=== PATIENT | female | born 1990 | race Caucasian/White ===

== ENCOUNTER 2017-08-16 11:32 | Emergency (ER) | payer MEDICAID ==
[~2017-08-16] VITALS: Ht 149.9 cm; Wt 58.5 kg
[2017-08-16 11:54] VITALS: Ht 149.9 cm; Wt 58.5 kg
--- NOTE | 2017-08-16 12:12 | ERA ---
ER Documentation Chief Complaint Date/Time DATE: 08/16/17 TIME: 12:12 Chief Complaint AP HPI The patient is a 26-year-old female, presenting to the ER because of epigastric abdominal pain that began 2 days ago, worse with eating, she has similar symptoms previously. She denies fever, chills, neck pain, chest pain, vomiting , dysuria, diarrhea, constipation. She is does not smoke nor drink Past medical/surgical history: None ROS All systems reviewed and are negative except as per history of present illness. Medications Home Meds Active Scripts Pantoprazole* (Protonix*) 20 Mg Tablet.dr, 20 MG PO DAILY, #14 TAB Prov:OWEN TEAGUE MD 08/16/17 Ibuprofen* (Motrin*) 600 Mg Tab, 600 MG PO Q6, #30 TAB Prov:OWEN TEAGUE MD 08/16/17 Allergies Allergies: Coded Allergies: No Known Allergy (Verified Allergy, Unknown, 12/12/08) Physical Exam Vitals Vital Signs Date Time Temp Pulse Resp B/P Pulse Ox O2 Delivery O2 Flow Rate FiO2 08/16/17 11:54 97.6 60 18 131/73 100 Physical Exam Const: No acute distress. Head: Atraumatic. Eyes: Normal Conjunctiva. ENT: Normal External Ears, Nose and Mouth. Neck: Full range of motion. No meningismus. Resp: Clear to auscultation bilaterally. Cardio: Regular rate and rhythm. Abd: Soft, non distended, normal bowel sounds. Mild epigastric and left upper quadrant tenderness, no right lower quadrant, rigidity, rebound, CVA Skin: No petechiae or rashes. Back: No midline or flank tenderness. Ext: No cyanosis, or edema. Neur: Awake and alert. No focal deficit Psych: Normal Mood and Affect. Result Diagram: 08/16/17 1230 08/16/17 1230 Results 24 hrs Laboratory Tests Test 08/16/17 12:30 08/16/17 12:46 White Blood Count 5.610^3/ul Red Blood Count 4.1410^6/ul Hemoglobin 12.4g/dl Hematocrit 38.1% Mean Corpuscular Volume 92.0fl Mean Corpuscular Hemoglobin 30.0pg Mean Corpuscular Hemoglobin Concent 32.5g/dl Red Cell Distribution Width 12.1% Platelet Count 24712^3/UL Mean Platelet Volume 11.9fl Neutrophils % 43.3% Lymphocytes % 46.3% Monocytes % 6.4% Eosinophils % 2.9% Basophils % 0.9% Nucleated Red Blood Cells % 0.0/100WBC Neutrophils # 2.410^3/ul Lymphocytes # 2.610^3/ul Monocytes # 0.410^3/ul Eosinophils # 0.210^3/ul Basophils # 0.110^3/ul Nucleated Red Blood Cells # 0.010^3/ul Sodium Level 140mmol/L Potassium Level 3.5mmol/L Chloride Level 104mmol/L Carbon Dioxide Level 29mmol/L Anion Gap 11 Blood Urea Nitrogen 9mg/dl Creatinine 0.69mg/dl Glucose Level 91mg/dl Calcium Level 9.6mg/dl Total Bilirubin 0.2mg/dl Direct Bilirubin 0.00mg/dl Indirect Bilirubin 0.2mg/dl Aspartate Amino Transf (AST/SGOT) 18IU/L Alanine Aminotransferase (ALT/SGPT) 29IU/L Alkaline Phosphatase 69IU/L Total Protein 7.9g/dl Albumin 4.2g/dl Globulin 3.70g/dl Albumin/Globulin Ratio 1.13 Lipase 30U/L Bedside Urine pH (LAB) 5.5 Bedside Urine Protein (LAB) Negative Bedside Urine Glucose (UA) Negative Bedside Urine Ketones (LAB) Negative Bedside Urine Blood 3+ Bedside Urine Nitrite (LAB) Negative Bedside Urine Leukocyte Esterase (L Trace Current Medications Medications (Trade) Dose Ordered Sig/Mariama Route PRN Reason Start Time Stop Time Status Last Admin Dose Admin Sodium Chloride (NS) 1,000 ml @ 1,000 mls/hr Q1H STAT IV 08/16/17 12:16 08/16/17 13:15 DC 08/16/17 12:58 Morphine Sulfate (morphine) 4 mg ONCE STAT IV 08/16/17 12:16 08/16/17 12:17 DC 08/16/17 12:57 Ondansetron HCl (Zofran Inj) 4 mg ONCE STAT IV 08/16/17 12:16 08/16/17 12:17 DC 08/16/17 12:57 Procedures/MDM [place] [id number] Radiology Main Line: [phone] DIAGNOSTIC IMAGING REPORT Patient: SABINE MISTRY : 1990 Age: 26 Sex: F MR #: [id number] DOS: 08/16/17 0000 Ordering MD: OWEN TEAGUE MD Location: FT Room/Bed: PROCEDURE: US right upper quadrant abdomen. CLINICAL INDICATION: Abdominal pain TECHNIQUE: Multiple real-time images were acquired of the patient's right upper quadrant abdomen utilizing a high resolution transducer. COMPARISON: None FINDINGS: The liver demonstrates normal echogenicity and normal size without focal lesions. Patent portal vein. Normal gallbladder without gallstones, pericholecystic fluid or gallbladder wall thickening. Negative sonographic Casey's sign. No intrahepatic or extrahepatic biliary dilatation. The common bile duct measures 4 mm in maximal dimension. The visualized portions of the pancreas are normal. The right kidney is normal size with normal echogenicity and morphology. The right kidney measures 10.1 cm. No hydronephrosis or perinephric fluid collections. There are no areas of increased echogenicity to suggest nephrolithiasis. Normal caliber aorta and IVC. No peritoneal free fluid. IMPRESSION: Normal right upper quadrant abdominal ultrasound. RPTAT:AAJJ Physician Heather Date Time Electronically viewed and signed by Physician Heather on 08/16/2017 13 :04 MH/ CC: OWEN TEAGUE MD MEDICAL MAKING DECISION: The patient is a 26-year-old female, presenting with acute abdominal pain of unclear etiology, most likely gastritis. She was treated with 1 L normal saline for clinical dehydration, morphine 4 mg IV for pain, Zofran 4 mg IV for nausea with good response The differential diagnoses considered include but are not limited to cholelithiasis, cholecystitis, cystitis, pancreatitis, hepatitis, gastritis, peptic ulcer disease, gastric ulcer, appendicitis, diverticulitis, cholangitis, choledocholithiasis, partial small bowel obstruction. Departure Diagnosis: Primary Impression: Abdominal pain Condition: Good Additional Instructions: She was discharged with Motrin and Protonix I discussed the findings with the patient. I advised the patient to follow-up with the primary physician in about 1-2 days, sooner if needed and return if any concern. The patient's blood pressure was elevated (>120/80) but appears stable without evidence of hypertension emergency or urgency. The patient was counseled about the risks of hypertension and urged to pursue outpatient monitoring and therapy within a week with their primary care physician. OWEN TEAGUE MD Aug 16, 2017 12:12
[2017-08-16] MEDS ORDERED: SOD CHLORIDE 0.9% 1,000 ML IV STA (12:16)
[2017-08-16] MEDS ORDERED: morphine 4 MG/ML VIAL IV STA (12:16)
[2017-08-16] MEDS ORDERED: ONDANSETRON 4 MG INJ IV STA (12:16)
[2017-08-16 12:39] LABS: URINE BLOOD (Dip) POC 3+ (NEGATIVE)
[2017-08-16 12:43] LABS: BASOPHIL # 0.1 10^3/ul (0.0-0.1); BASOPHILS % 0.9 % (0.0-2.0); EOSINOPHILS # 0.2 10^3/ul (0.0-0.5); EOSINOPHILS % 2.9 % (0.0-7.0); HEMATOCRIT 38.1 % (37.0-47.0); HEMOGLOBIN 12.4 g/dl (12.0-16.0); LYMPHOCYTES # 2.6 10^3/ul (0.8-2.9); LYMPHOCYTES % 46.3 % (15.0-51.0); MEAN CORPUSCULAR HGB CONC 32.5 g/dl (32.0-37.0); MEAN PLATELET VOLUME 11.9 fl (7.4-10.4); MONOCYTE # 0.4 10^3/ul (0.3-0.9); MONOCYTES % 6.4 % (0.0-11.0); NEUTROPHIL # 2.4 10^3/ul (1.6-7.5); NEUTROPHILS % 43.3 % (39.0-77.0); PLATELET COUNT 228 10^3/UL (140-415); RED BLOOD COUNT 4.14 10^6/ul (4.20-5.40); RED CELL DISTRIBUTION WIDTH 12.1 % (11.5-14.5); WHITE BLOOD COUNT 5.6 10^3/ul (4.8-10.8)
[2017-08-16 12:58] LABS: URINE BLOOD (Dip) POC 3+ (NEGATIVE)
--- NOTE | 2017-08-16 13:05 | RADRPT ---
PROCEDURE: US right upper quadrant abdomen. CLINICAL INDICATION: Abdominal pain TECHNIQUE: Multiple real-time images were acquired of the patient's right upper quadrant abdomen utilizing a high resolution transducer. COMPARISON: None FINDINGS: The liver demonstrates normal echogenicity and normal size without focal lesions. Patent portal vein . Normal gallbladder without gallstones, pericholecystic fluid or gallbladder wall thickening. Negat veronica sonographic Casey's sign. No intrahepatic or extrahepatic biliary dilatation. The common bile duct measures 4 mm in maximal dimension. The visualized portions of the pancreas are normal. The r ight kidney is normal size with normal echogenicity and morphology. The right kidney measures 10.1 cm. No hydronephrosis or perinephric fluid collections. There are no areas of increased echogenici ty to suggest nephrolithiasis. Normal caliber aorta and IVC. No peritoneal free fluid. IMPRESSION: Normal right upper quadrant abdominal ultrasound. RPTAT:AAJJ Physician Heather Date Time Electronically viewed and signed by Physician Heather on 08/16/2017 13:04 /
[2017-08-16 13:08] LABS: ALBUMIN 4.2 g/dl (3.3-4.9); ALBUMIN/GLOBULIN RATIO 1.13; BILIRUBIN,INDIRECT 0.2 mg/dl (0-1.1); BILIRUBIN,TOTAL 0.2 mg/dl (0.2-1.3); CALCIUM 9.6 mg/dl (8.4-10.2); CREATININE 0.69 mg/dl (0.44-1.00); POTASSIUM 3.5 mmol/L (3.5-5.1); TOTAL PROTEIN 7.9 g/dl (6.1-8.1)
[2017-08-16] MEDS ORDERED: PANT20TA2 PO (13:18)
[2017-08-16] MEDS ORDERED: IBUP-1542 PO (13:18)
[2017-08-16 13:59] VITALS: BP 110/63; PULSE 60; RESP 16; TEMP 98
== END 2017-08-16 14:01 | disposition home or self-care (01) ==
LOC: FTE 11:32
DX: R10.13 Epigastric pain (principal)
CPT/HCPCS: 36415; 76705; 80053; 81003; 83690; 85025; 96374; 96375; J2270; J2405; J7030; Z7502

== ENCOUNTER 2017-10-27 12:00 | Emergency (ER) | payer MEDICAID ==
[~2017-10-27] VITALS: Ht 160 cm; Wt 60.0 kg
[~2017-10-27 12:00] MED LIST: IBUP-1542 PO; PANT20TA2 PO
[2017-10-27 12:03] VITALS: Ht 160 cm; Wt 60.0 kg
[2017-10-27] MEDS ORDERED: AZITHROMYCIN 250 MG TAB PO STA (12:49)
[2017-10-27] MEDS ORDERED: CEFTRIAXONE 250 MG INJ IVPB STA (12:49)
[2017-10-27] MEDS ORDERED: SOD CHLORIDE 0.9% 1,000 ML IV STA (12:49)
[2017-10-27] MEDS ORDERED: KETOROLAC 30 MG INJ IV STA (12:49)
[2017-10-27] MEDS ORDERED: CEFTRIAXONE 250 MG INJ IM ONE (13:30)
[2017-10-27] MEDS ORDERED: LIDOCAINE 1% (MDV) 20 ML INJ SC ONE (13:30)
[2017-10-27 13:38] LABS: BASOPHILS % 0.6 % (0.0-2.0); EOSINOPHILS # 0.1 10^3/ul (0.0-0.5); EOSINOPHILS % 1.8 % (0.0-7.0); HEMATOCRIT 37.8 % (37.0-47.0); HEMOGLOBIN 12.9 g/dl (12.0-16.0); LYMPHOCYTES # 2.7 10^3/ul (0.8-2.9); LYMPHOCYTES % 40.6 % (15.0-51.0); MEAN CORPUSCULAR HEMOGLOBIN 30.6 pg (29.0-33.0); MEAN CORPUSCULAR HGB CONC 34.1 g/dl (32.0-37.0); MEAN CORPUSCULAR VOLUME 89.6 fl (82.0-101.0); MEAN PLATELET VOLUME 11.7 fl (7.4-10.4); MONOCYTE # 0.6 10^3/ul (0.3-0.9); MONOCYTES % 8.2 % (0.0-11.0); NEUTROPHIL # 3.3 10^3/ul (1.6-7.5); NEUTROPHILS % 48.5 % (39.0-77.0); PLATELET COUNT 245 10^3/UL (140-415); RED BLOOD COUNT 4.22 10^6/ul (4.20-5.40); WHITE BLOOD COUNT 6.7 10^3/ul (4.8-10.8)
[2017-10-27 13:46] LABS: ADD UMIC YES; UR ASCORBIC ACID NEGATIVE (NEGATIVE); UR BILIRUBIN (Dip) NEGATIVE (NEGATIVE); UR BLOOD (Dip) 1+ mg/dL (NEGATIVE); UR CLARITY CLEAR (CLEAR); UR COLOR STRAW (YELLOW); UR GLUCOSE (Dip) NEGATIVE (NEGATIVE); UR KETONES (Dip) NEGATIVE (NEGATIVE); UR LEUKOCYTE ESTERASE (Dip) NEGATIVE Leu/ul (NEGATIVE); UR NITRITE (Dip) NEGATIVE (NEGATIVE); UR RBC 0 /HPF (0-5); UR SPECIFIC GRAVITY (Dip) 1.006 (1.003-1.030); UR SQUAMOUS EPITHELIAL CELL FEW /HPF (FEW); UR TOTAL PROTEIN (Dip) NEGATIVE (NEGATIVE); UR UROBILINOGEN (Dip) NEGATIVE (NEGATIVE)
[2017-10-27 13:55] LABS: CALCIUM 9.4 mg/dl (8.4-10.2); CREATININE 0.61 mg/dl (0.44-1.00)
--- NOTE | 2017-10-27 14:24 | RADRPT ---
PROCEDURE: US Pelvis. CLINICAL INDICATION: Pelvic pain. TECHNIQUE: The pelvis was evaluated with transabdominal sonography in the axial and sagittal plane s. COMPARISON: No prior study is available for comparison. FINDINGS: Uterus: 9.1 x 3.9 x 4.8 cm. Endometrium: 13.1 mm. Right ovary: 2.5 x 1.5 x 1.9 cm. Left ovary: 3.5 x 1.8 x 2.3 cm. Uterine masses: None. Ovarian masses: None. Color Doppler and pulsed Doppler sonography demonstrate normal flow to the ova glenn. Other pelvic masses: None. Free fluid: Trace free fluid is present in the cul-de-sac, likely physiologic. IMPRESSION: 1. Trace free fluid in the cul-de-sac, likely physiologic. 2. Otherwise normal pelvic ultrasound. RPTAT: QQ .Rony Kendall MD, Date Time Electronically viewed and signed by .Rony Kendall MD, on 10/27/2017 14:23 .R/
[2017-10-27] MEDS ORDERED: NAPR-260 PO (15:47)
--- NOTE | 2017-10-27 15:47 | ERD ---
ER Documentation Chief Complaint Chief Complaint Pelvic pain, Vaginal discharge, Vaginal bleeding yesterday HPI The patient is a 26-year-old female, A0, who presents to the emergency department with complaint of pelvic pain and vaginal discharge. The patient reports that her symptoms initially began on Wednesday, with onset of a white/ yellow-colored vaginal discharge and cramping pelvic pain. Yesterday, she noted onset of mild spotting, which has since resolved. She reports that her last menstrual period was 10/13/2017. However, for the last 2 months her menstrual cycles have shifted from their baseline, and are significantly more heavy with increased cramping. She denies any dyspareunia. Denies fevers, sweats, chills, nausea, vomiting, diarrhea, dysuria, hematuria, flank pain. Patient is sexually active, with one long-term male partner, which whom she believes that she is monogamous. She denies use of any barrier protection. Last sexual activity was on Wednesday. Of note, approximately 2 months ago the patient tested positive for Chlamydia, though states that she was treated and the infection is now gone. Her last pap smear was 5-6 months ago, and normal. No other complaints at this time. ROS All systems reviewed and are negative except as per history of present illness. Medications Home Meds Active Scripts Naproxen* (Naprosyn*) 500 Mg Tablet, 500 MG PO BID Y for PAIN AND/OR INFLAMMATION, #30 TAB Prov:ANTHONY JOHNSON PA-C 10/27/17 Pantoprazole* (Protonix*) 20 Mg Tablet.dr, 20 MG PO DAILY, #14 TAB Prov:OWEN TEAGUE MD 08/16/17 Ibuprofen* (Motrin*) 600 Mg Tab, 600 MG PO Q6, #30 TAB Prov:OWEN TEAGUE MD 08/16/17 Allergies Allergies: Coded Allergies: No Known Allergy (Verified , 12/12/08) PMhx/Soc Medical and Surgical Hx: pt denies Medical Hx, pt denies Surgical Hx History of Surgery: No Anesthesia Reaction: No Hx Neurological Disorder: No Hx Respiratory Disorders: No Hx Cardiac Disorders: No Hx Psychiatric Problems: No Hx Miscellaneous Medical Probl: No Hx Alcohol Use: No Hx Substance Use: No Hx Tobacco Use: No Smoking Status: Current every day smoker Physical Exam Vitals Vital Signs Date Time Temp Pulse Resp B/P Pulse Ox O2 Delivery O2 Flow Rate FiO2 10/27/17 12:03 98.1 59 18 128/85 99 Physical Exam GENERAL: Well-developed, well-nourished, in no acute distress HEENT: Head is normocephalic, atraumatic. No scleral pallor or icterus. Pupils equal, round and reactive to light. Extraocular movements intact. Conjunctiva pink. Moist mucous membranes. No pharyngeal erythema or exudates. NECK: Supple. Full range of motion. RESPIRATORY: Lungs are clear to auscultation bilaterally. Equal breath sounds. Normal expiratory effort. CARDIOVASCULAR: Regular rate and rhythm. S1 and S2 normal. GASTROINTESTINAL: Abdomen is soft, nontender, and nondistended. No guarding, no rebound tenderness. Normal bowel sounds. FLANK: No CVA tenderness, no mass or swelling. BACK: No midline tenderness. 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 Normal external genitalia. No abnormal lesions, vesicles, ulcerations noted. White discharge noted. No associated odor. No bleeding. No cervical motion tenderness. No adnexal tenderness. No uterine tenderness. No masses. EXTREMITIES: No clubbing, cyanosis, or edema. Normal skin perfusion. Moving all extremities. Muscle tone is normal. No focal swelling or erythema. Distal pulses are palpable, 2+ bilaterally. Capillary refill is less than 2 seconds. NEUROLOGIC: The patient is alert, awake, and oriented x 3. No focal neurologic deficits. INTEGUMENT: Skin is clean, dry and intact. No rashes, lesions or petechiae present. PSYCHIATRIC: Appropriate; Cooperative. Result Diagram: 10/27/17 1323 10/27/17 1323 Results 24 hrs Laboratory Tests Test 10/27/17 13:23 10/27/17 13:30 White Blood Count 6.710^3/ul Red Blood Count 4.2210^6/ul Hemoglobin 12.9g/dl Hematocrit 37.8% Mean Corpuscular Volume 89.6fl Mean Corpuscular Hemoglobin 30.6pg Mean Corpuscular Hemoglobin Concent 34.1g/dl Red Cell Distribution Width 12.0% Platelet Count 77210^3/UL Mean Platelet Volume 11.7fl Neutrophils % 48.5% Lymphocytes % 40.6% Monocytes % 8.2% Eosinophils % 1.8% Basophils % 0.6% Nucleated Red Blood Cells % 0.0/100WBC Neutrophils # 3.310^3/ul Lymphocytes # 2.710^3/ul Monocytes # 0.610^3/ul Eosinophils # 0.110^3/ul Basophils # 0.010^3/ul Nucleated Red Blood Cells # 0.010^3/ul Sodium Level 141mmol/L Potassium Level 4.0mmol/L Chloride Level 102mmol/L Carbon Dioxide Level 28mmol/L Anion Gap 15 Blood Urea Nitrogen 10mg/dl Creatinine 0.61mg/dl Glucose Level 88mg/dl Calcium Level 9.4mg/dl Serum HCG, Qualitative NEGATIVE Rapid Plasma Reagin NONREACTIVE Urine Color STRAW Urine Clarity CLEAR Urine pH 7.0 Urine Specific [place] 1.006 Urine Ketones NEGATIVEmg/dL Urine Nitrite NEGATIVEmg/dL Urine Bilirubin NEGATIVEmg/dL Urine Urobilinogen NEGATIVEmg/dL Urine Leukocyte Esterase NEGATIVELeu/ul Urine Microscopic RBC 0/HPF Urine Microscopic WBC 1/HPF Urine Squamous Epithelial Cells FEW/HPF Urine Hemoglobin 1+mg/dL Urine Glucose NEGATIVEmg/dL Urine Total Protein NEGATIVEmg/dl Current Medications Medications (Trade) Dose Ordered Sig/Mariama Route PRN Reason Start Time Stop Time Status Last Admin Dose Admin Sodium Chloride (NS) 1,000 ml @ 1,000 mls/hr Q1H STAT IV 10/27/17 12:49 10/27/17 13:48 DC 10/27/17 13:27 Azithromycin (Zithromax) 1,000 mg ONCE STAT PO 10/27/17 12:49 10/27/17 12:52 DC 10/27/17 13:26 Ceftriaxone Sodium (Rocephin) 250 mg ONCE STAT IVPB 10/27/17 12:49 10/27/17 13:22 DC Ketorolac Tromethamine (Toradol) 30 mg ONCE STAT IV 10/27/17 12:49 10/27/17 12:52 DC 10/27/17 13:25 Lidocaine (Xylocaine 1% (Mdv) 20 ml) 20 ml ONCE ONCE SC 10/27/17 13:30 10/27/17 13:31 DC 10/27/17 13:27 Ceftriaxone Sodium (Rocephin) 250 mg ONCE ONCE IM 10/27/17 13:30 10/27/17 13:31 DC 10/27/17 13:26 Procedures/MDM DIAGNOSTIC TESTS AND INTERPRETATION: PROCEDURE: US Pelvis. CLINICAL INDICATION: Pelvic pain. TECHNIQUE: The pelvis was evaluated with transabdominal sonography in the axial and sagittal planes. COMPARISON: No prior study is available for comparison. FINDINGS: Uterus: 9.1 x 3.9 x 4.8 cm. Endometrium: 13.1 mm. Right ovary: 2.5 x 1.5 x 1.9 cm. Left ovary: 3.5 x 1.8 x 2.3 cm. Uterine masses: None. Ovarian masses: None. Color Doppler and pulsed Doppler sonography demonstrate normal flow to the ovaries. Other pelvic masses: None. Free fluid: Trace free fluid is present in the cul-de-sac, likely physiologic. IMPRESSION: 1. Trace free fluid in the cul-de-sac, likely physiologic. 2. Otherwise normal pelvic ultrasound. .Rony Kendall MD, MD Date Time Electronically viewed and signed by .Rony Kendall MD, on 10/27/2017 14:23 Microbiology WET MOUNT Final WHITE BLOOD CELLS RARE BACTERIA 1+ EPITHELIAL CELLS 2+ YEAST NONE SEEN CLUE CELLS NO CLUE CELLS SEEN MOTILE TRICHOMONAS NO MOTILE TRICHOMONAS SEEN EMERGENCY DEPARTMENT COURSE: The patient was stable throughout the ED course. Laboratory testing, US imaging, wet mount performed. Urine culture and GC/ chlamydia testing sent. Patient treated prophylactically with 1,000 mg PO Azithromycin and 250 mg IM Rocephin for possible cervicitis, STI, given history. MEDICAL DECISION MAKING: This is a 26-year-old female presenting to the emergency department with pelvic pain and vaginal discharge since Wednesday. On physical examination, patient noted to have white-colored discharge. She had no tenderness to palpation of the abdomen, no cervical motion tenderness or adnexal tenderness, on physical examination. Vital signs are stable. She has been sexually active, with her boyfriend, with no use of barrier protection. Differential diagnosis includes, but is not limited to, urinary tract infection , PID, TOA, cervicitis, dermatitis, chlamydia, gonorrhea, bacterial vaginosis, candidiasis, herpes, lichen sclerosus, trichomoniasis. Wet mount performed, with no evidence of hyphae, clue cells, trichomonads. RPR nonreactive. Urinalysis with no nitrites, no urine leukocyte esterase, doubt urinary tract infection. Urine culture is sent. test negative. Gonorrhea/chlamydial cultures sent. Ultrasound imaging with no acute abnormalities noted. After rest , the patient reports no new complaints. Upon my review and interpretation of the patient's presentation and overall ER course, I believe that the patient's symptoms are most consistent with pelvic pain and vaginal discharge. The patient was treated in the ER with 250 mg IM Rocephin and 1 gram of Azithromycin, for STD coverage. GC/Chlamydia screen was sent out for evaluation. The patient is in stable condition and therefore can be discharged home with strict return precautions for signs of deteriorating or worsening condition. The patient is instructed to follow up with her primary care provider and/or [facility] within 1-2 days for reevaluation and further management or return to the ER sooner for any worsening symptoms. I shared my medical decision making and plan with the patient and she verbally understands and agrees with the plan for further observation and care as an outpatient. At the time of discharge, all questions were answered. Departure Diagnosis: Primary Impression: Acute pain in female pelvis Additional Impression: Vaginal discharge Condition: Stable Patient Instructions: Pelvic Pain, Unknown Cause Additional Instructions: Llame al doctor MAANA y meredith emanuel MARLON PARA DENTRO DE 1-2 MOREL.Dgale a la secretaria que nosotros le instruimos hacer esta marlon.Avise o llame si king condicin se empeora antes de la marlon. Regresa aqui si peor o no mejor. ANTHONY JOHNSON PA-C Oct 27, 2017 15:47 ANTHONY JOHNSON PA-C Oct 27, 2017 15:47
== END 2017-10-27 16:01 | disposition home or self-care (01) ==
LOC: FTE 12:00
DX: R10.2 Pelvic and perineal pain (principal); N89.8 Other specified noninflammatory disorders of vagina; F17.210 Nicotine dependence, cigarettes, uncomplicated
CPT/HCPCS: 36415; 76856; 80048; 81001; 84703; 85025; 86592; 87081; 87086; 87210; 87591; 96372; 96374; J0696; J1885; J7030; Z7502; Z7610

== ENCOUNTER 2017-12-16 11:50 | Emergency (ER) | END 2017-12-16 16:20 | disposition left against medical advice (07) ==

== ENCOUNTER 2018-05-27 17:28 | Emergency (ER) | END 2018-05-27 22:41 | disposition home or self-care (01) ==

== ENCOUNTER 2018-10-10 09:35 | Outpatient (CLI) | payer MEDICAID ==
[~2018-10-10] VITALS: Ht 157.5 cm; Wt 66.2 kg
[~2018-10-10 09:35] MED LIST changes: +ACET325T33 PO; +CEPH-443 PO; +NAPR-985 PO
[2018-10-10 10:11] VITALS: BP 117/67; PULSE 96; RESP 17; Ht 157.5 cm; Wt 66.2 kg
[2018-10-10] MEDS ORDERED: LACTATED RINGER'S 1,000 ML IV SCH (12:01)
--- NOTE | 2018-11-15 18:30 | PN ---
Triage Information Date/Time Reason for visit: Uterine contractions Weeks of Gestation 28+ /Para n/a Diabetes: none Hypertention: none Objective Heart Rate: 140's Contractions: None Disposition: Discharge Assessment/Plan BPP 08/17 CXL 3.6 cm FFN neg --->Discharge with precautions -->Follow up with provider GRZEGORZ MITCHELL M.D. Nov 15, 2018 18:30
== END 2018-10-10 13:10 | disposition home or self-care (01) ==
LOC: L-D 09:35 → OBT 09:35
PROVIDERS: ATTEND Obstetrics & Gynecology
DX: O62.9 Abnormality of forces of labor, unspecified (principal); Z3A.28 28 weeks gestation of pregnancy
CPT/HCPCS: 76817; 76818; 81001; 82731; 85025; 86850; 86900; 86901; 96360; 96361; J7120; Z7500; G0463

== ENCOUNTER 2018-12-22 08:36 | Outpatient (CLI) | payer MEDICAID ==
[~2018-12-22] VITALS: Ht 152.4 cm; Wt 72.3 kg
[2018-12-22 08:59] VITALS: Ht 152.4 cm; Wt 72.3 kg
[2018-12-22] MEDS ORDERED: PREN-93 PO (08:59)
[2018-12-22 09:00] VITALS: BP 108/58; PULSE 69; RESP 18
--- NOTE | 2018-12-22 17:22 | PN ---
Triage Information Date/Time December 22, 2018 Reason for visit: Patient presented with complaint of tenderness at the top of the fundus of the uterus when the baby moves and with touch. Reports a history of questionable fibroid in that area previously. Weeks of Gestation 37 weeks and 6 days /Para 2 para 1 Diabetes: none Hypertention: none Additional information 28-year-old with IUP at 7 weeks and 6 days presented with complaint of tenderness in the top of the fundus of the uterus when the baby moves and with touch. She also reports some cramps. Denies any leaking of fluid, vaginal bleeding decreased movement or any other complaint. Reports had a history of lump in the uterus in the past. Objective Vital Signs Date Temp Pulse Resp B/P (MAP) Pulse Ox O2 O2 Flow FiO2 Time Delivery Rate 12/22/18 98.2 69 18 108/58 Room Air 09:00 (75) Heart Rate: 130's Heart Rate Comments Reassuring and category 1 Contractions: None Exam General appearance: Alert and oriented x4 does not appear to be in any acute distress Abdomen: Soft, gravid, fundal height consider gestational age, tenderness at the fundus of the uterus at the left upper side at the area of a small tender lump 2 x 2 centimeter consistent with likely sub-serosal fibroid noted NST: Category 1 and appropriate for gestational age Contractions irregular on the monitor Sterile vaginal examination: /-2. Repeat exam did not show any change' Results/Medications Imaging Results PROCEDURE: US OB biophysical profile. CLINICAL INDICATION: decreased movements, contractions TECHNIQUE: Multiple sonographic images of the pelvis were obtained. The images were reviewed on a PACS workstation. COMPARISON: No prior studies are available for comparison. FINDINGS: There is a single live intrauterine gestation. Cardiac activity is present with 152 beats per minute. There is a vertex presentation. The placenta is anterior. There is no evidence of placental abruption. There is a normal amount of amniotic fluid with an LISSA = 12.7 cm. Biophysical profile: movement 2/2 tone 2/2. breathing 2/2 LISSA 2/2 Total 06/15 RPTAT: AA . IMPRESSION: Normal biophysical profile. . Disposition: Discharge Assessment/Plan IUP at 37 weeks and 6 days No evidence of labor testing reassuring Tenderness at the area of the fundus of the uterus, likely fibroid, degenerated Patient was reassured Labor precautions kick count and follow-up within 48 hours after discharge from the hospital with primary OB office discussed with patient Patient verbalized understanding. All questions were answered to patient's best satisfaction. Please take Tylenol as needed pain in that area Discussed with patient degeneration of the fibroids, during and resolves BENIGNO RAMIREZ MD Dec 22, 2018 17:21
== END 2018-12-22 12:45 | disposition home or self-care (01) ==
LOC: OBT 08:36 → L-D 08:36 → OBT 12:45
PROVIDERS: ATTEND Obstetrics & Gynecology
DX: O62.9 Abnormality of forces of labor, unspecified (principal); Z3A.37 37 weeks gestation of pregnancy
CPT/HCPCS: 76818; Z7500; G0463

== ENCOUNTER 2018-12-25 08:44 | Inpatient (IN) | payer MEDICAID ==
[~2018-12-25] VITALS: Ht 152.4 cm; Wt 73.3 kg
[~2018-12-25 08:44] MED LIST changes: -ACET325T33 PO; -CEPH-443 PO; -IBUP-1542 PO; -NAPR-985 PO; -PANT20TA2 PO; +PREN-93 PO
[2018-12-25] MEDS ORDERED: ACETAMINOPHEN 325 MG TAB PO PRN (09:30)
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
--- NOTE | 2018-12-25 11:40 | HP ---
Date/Time of Note Date/Time of Note DATE: 12/25/18 TIME: 11:39 OB - History Hx of Present Free Text/Dictation 38+wks with Vaginal bleeding : 2 Para: 1 Care: Good Care Ultrasounds: Normal mid trimester US Obstetrical Complications: None Medical Complications: None Past Family/Social History * Past Medical, Surgical, Family and Obstetric Histories reviewed from chart. OB Admission Exam Physical Exam Abdomen: WNL Extremities: Normal Cervical Dilatation: 1cm Effacement: 75% Station: -1 Membranes: Intact Heart Rate: 140's Accelerations: Accelerations Present Decelerations: No Decelerations Varibility: Moderate Contractions on Admission: 6-10 Minutes Apart OB Assessment/Plan Reason for admission: observation Plan: Expectant Management GRZEGORZ MITCHELL M.D. Dec 25, 2018 11:40
[2018-12-25] MEDS: LACTATED RINGER'S 1,000 ML IV SCH ×2 (12:14→19:36)
--- NOTE | 2018-12-25 21:57 | PD.PPDC ---
RESEARCH SUBJECT Discharge Instruction Condition [id number] Patient Condition: [id number] Good Diet Tsmre1Ii Diet: Detad9c Resume Regular Diet Activity/Restrictions [id number] Activity: Syark1t Normal Activity May Shower [id number] Restrictions: [id number] No Sexual Activity Nothing in the Vagina No [place] No Tampons, douche Follow-up Follow-up with Physician: 2, Day/Days Return to clinic for [id number] HUNTER Instructions: [id number] Worsening abdominal pain Excessive Vaginal Bleeding KALPANA SAAB MD Dec 25, 2018 21:57
--- NOTE | 2018-12-25 22:00 | DS ---
Date/Time of Note Date/Time of Note DATE: 12/25/18 TIME: 21:58 Obstetrical Discharge Record Final Diagnosis Final Diagnosis: Term not delivered Other Final Diagnosis False labor Complications Augmentation: No Induction: No Third Trimester Bleeding: Other (Pt had some light bleeding after a cervical exam 3 days agovand the bleeding has shown old blood and has diminished since then) Rupture of Membranes: No Condition on Discharge Physical Assessment Last Vitals: Normotensive, afebrile Voiding: Yes Bowel Movement: Yes Breast: Soft, non-tender Fundus: Other (gravid) Calf Tenderness: No Patient Condition: KALPANA Su MD Dec 25, 2018 22:00
[2018-12-26] MEDS ORDERED: PRENATAL VITAMIN PO SCH (09:00)
== END 2018-12-25 22:20 | disposition home or self-care (01) | DRG 833 ==
LOC: OBT 08:44 → L-D 08:45 → OBT 09:35 → L-D 11:58
PROVIDERS: ADMIT Obstetrics & Gynecology; ATTEND Obstetrics & Gynecology
DX: O47.1 False labor at or after 37 completed weeks of gestation (principal); O46.93 Antepartum hemorrhage, unspecified, third trimester; Z3A.38 38 weeks gestation of pregnancy
CPT/HCPCS: 76818; G0463; J7120

== ENCOUNTER 2018-12-29 13:00 | Inpatient (IN) | payer MEDICAID ==
[~2018-12-29] VITALS: Ht 152.4 cm; Wt 73.6 kg
[~2018-12-29 13:00] MED LIST changes: +ACET325T33 PO; +CEPH-443 PO; +IBUP-1542 PO; +NAPR-985 PO; +PANT20TA2 PO
[2018-12-29] MEDS ORDERED: FOLI0.4T2 PO (13:57)
[2018-12-29] MEDS ORDERED: CALC667C PO (13:57)
[2018-12-29 13:58] VITALS: BP 125/69; PULSE 74; RESP 20; Ht 152.4 cm; Wt 73.6 kg
[2018-12-29] MEDS ORDERED: MISOPROSTOL 200 MCG TAB PR PRN (14:30)
[2018-12-29] MEDS ORDERED: OXYTOCIN 30 UNITS/LR 500 ML IV PRN (14:30)
[2018-12-29] MEDS ORDERED: LIDOCAINE 1% (MPF) 30 ML INJ INJ PRN (14:30)
[2018-12-29] MEDS ORDERED: CARBOPROST 250 MCG INJ IM PRN (14:30)
[2018-12-29] MEDS ORDERED: IBUPROFEN 600 MG TAB PO PRN (14:30)
[2018-12-29] MEDS ORDERED: BUTORPHANOL 2 MG INJ IV PRN (14:30)
[2018-12-29] MEDS ORDERED: METHYLERGONOVINE 0.2 MG INJ IM PRN (14:30)
[2018-12-29] MEDS ORDERED: OXYTOCIN 30 UNITS/LR 500 ML IV SCH ×2 (14:30)
[2018-12-29] MEDS ORDERED: AMPICILLIN 2 GM/NS (PMX) 100 ML IV ONE (14:30)
[2018-12-29] MEDS ORDERED: BUTORPHANOL 1 MG INJ IV PRN (14:30)
[2018-12-29] MEDS: LACTATED RINGER'S 1,000 ML IV SCH ×2 (14:57→23:48)
--- NOTE | 2018-12-29 15:29 | TRIAGE ---
OB Triage Datetime Report Generated by CPN: 12/29/2018 15:28 Datetime: 12/29/2018 14:40 Labor Evaluation Frequency: 1-5 Monitor Mode: External Duration (sec)2399: 30-100 Quality: Mild Pattern: Normal: <= 5 Contractions in 10 Minutes Resting Tone [place]: Relaxed Heart Rate FHR Baseline Rate: 140 Monitor Mode: External US Variability: Moderate 6-25 bpm Accelerations: 15X15 Decelerations: None Category: Category I Datetime: 12/29/2018 14:26 Vaginal Exam Dilatation (cms): 3.5 Effacement (%): 60 Membrane Status: Ruptured Datetime: 12/29/2018 13:56 Assessment Type: Triage Maternal Assessment Level of Consciousness: Fully Conscious DTR's/Clonus: DTRs 2+; No Clonus Headache: Denies Blurred Vision: No Respiratory Effort: Unlabored; Regular Rhythm; Equal Expansion Nausea/Vomiting: Denies RUQ Epigastric Pain: Denies Lower Extremities Edema: None Degree: None Upper Extremities Edema: None Degree: None Facial Edema: None Fall Risk Assessment History of Falling: (0) No Secondary Diagnosis: (0) No Ambulatory Aid: (0) Bedrest/Nurse Assist IV Therapy: (0) No Gait: (0) Normal/Bedrest/Immobile Mental Status: (0) Oriented to Own Ability Fall Score: 0 Fall Risk Score Definition: No Risk: No action required Datetime: 12/29/2018 13:55 Time of Arrival: 12/29/2018 12:43 EGA: 38.6 Arrived By: Ambulatory Arrived From: Home Chief Complaint: ucs and srom Movement: Present Contractions: Regular Time Contractions Began: 12/29/2018 04:00 Contractions: 5 min Rupture of Membranes: Ruptured Vaginal Bleeding: None Vaginal Discharge: Denies Recent Sexual Intercouse: Denies Abdominal Trauma: Not Applicable Patient Complaints: Contractions Time Provider Notified: 12/29/2018 14:39 Provider Notified: ARDALAN Initial Plan: nst, sve Datetime: 12/25/2018 22:20 Stage of : Antepartum Maternal Assessment Level of Consciousness: Fully Conscious DTR's/Clonus: DTRs 2+; No Clonus Headache: Denies Breath Sounds, Left: Clear and Equal Breath Sounds, Right: Clear and Equal Nausea/Vomiting: Denies RUQ Epigastric Pain: Denies Temperature Route: Axillary Pain Assessment Pain Scale: 2 Pain Presence: None/Denies Pain Type: N/A Datetime: 12/25/2018 21:49 Maternal Assessment Level of Consciousness: Fully Conscious Respiratory Effort: Unlabored Breath Sounds, Left: Clear and Equal Breath Sounds, Right: Clear and Equal Labor Evaluation Frequency: 10-13 Monitor Mode: External Duration (sec)2399: 30-40 Quality: Mild Pattern: Normal: <= 5 Contractions in 10 Minutes Resting Tone [place]: Relaxed Contraction Comments: NO PRESSURE OR PAIN FELT PER PT Heart Rate FHR Baseline Rate: 150 Monitor Mode: External US FHR Baseline Changes: No Baseline Change Variability: Moderate 6-25 bpm Accelerations: 15X15 Decelerations: None Category: Category I Pain Assessment Pain Scale: 0 Pain Presence: None/Denies Pain Type: N/A Membrane Status: Intact Datetime: 12/25/2018 19:19 Stage of : Antepartum Maternal Assessment Level of Consciousness: Fully Conscious Maternal Assessment Level of Consciousness: Fully Conscious DTR's/Clonus: DTRs 2+; No Clonus DTR's/Clonus: DTRs 2+ Headache: Denies Headache: Denies Blurred Vision: No Respiratory Effort: Unlabored Breath Sounds, Left: Clear and Equal Breath Sounds, Left: Clear and Equal Breath Sounds, Right: Clear and Equal Breath Sounds, Right: Clear and Equal Nausea/Vomiting: Denies Nausea/Vomiting: Denies RUQ Epigastric Pain: Denies RUQ Epigastric Pain: Denies Facial Edema: None Temperature Route: Axillary Labor Evaluation Frequency: 10 Monitor Mode: External Duration (sec)2399: 20-30 Quality: Mild Pattern: Normal: <= 5 Contractions in 10 Minutes Resting Tone [place]: Relaxed Heart Rate FHR Baseline Rate: 150 Monitor Mode: External US FHR Baseline Changes: No Baseline Change Variability: Moderate 6-25 bpm Accelerations: 15X15 Decelerations: None Category: Category I Pain Assessment Pain Scale: 0 Pain Presence: None/Denies Pain Type: N/A Pain Goal: 2 Pain Assessment Comments: AT BEDSIDE Membrane Status: Intact Datetime: 12/25/2018 19:00 Labor Evaluation Frequency: OCC Monitor Mode: External Quality: Mild Pattern: Normal: <= 5 Contractions in 10 Minutes Resting Tone [place]: Relaxed Heart Rate FHR Baseline Rate: 150 Monitor Mode: External US FHR Baseline Changes: No Baseline Change Variability: Moderate 6-25 bpm Accelerations: 15X15 Decelerations: None Category: Category I Pain Presence: None/Denies Datetime: 12/25/2018 18:00 Labor Evaluation Frequency: x3 UC noted this hour Monitor Mode: External Quality: Mild Pattern: Normal: <= 5 Contractions in 10 Minutes Resting Tone [place]: Relaxed Heart Rate FHR Baseline Rate: 140 Monitor Mode: External US FHR Baseline Changes: No Baseline Change Variability: Moderate 6-25 bpm Accelerations: 15X15 Decelerations: None Category: Category I Pain Presence: None/Denies Datetime: 12/25/2018 17:00 Labor Evaluation Frequency: OCC Monitor Mode: External Quality: Mild Pattern: Normal: <= 5 Contractions in 10 Minutes Resting Tone [place]: Relaxed Heart Rate FHR Baseline Rate: 140 Monitor Mode: External US FHR Baseline Changes: No Baseline Change Variability: Moderate 6-25 bpm Accelerations: 15X15 Decelerations: None Category: Category I Pain Presence: None/Denies Datetime: 12/25/2018 16:18 Temperature Route: Oral Datetime: 12/25/2018 16:00 Labor Evaluation Frequency: x3 UC noted this hour Monitor Mode: External Quality: Mild Pattern: Normal: <= 5 Contractions in 10 Minutes Resting Tone [place]: Relaxed Heart Rate FHR Baseline Rate: 145 Monitor Mode: External US FHR Baseline Changes: No Baseline Change Variability: Moderate 6-25 bpm Accelerations: 15X15 Decelerations: None Category: Category I Pain Presence: None/Denies Pain Assessment Comments: Pt denies feeling any pain or pressure with UC Datetime: 12/25/2018 15:00 Labor Evaluation Frequency: 5-10 Monitor Mode: External Duration (sec)2399: 60-90 Quality: Moderate Pattern: Normal: <= 5 Contractions in 10 Minutes Resting Tone [place]: Relaxed Heart Rate FHR Baseline Rate: 155 Monitor Mode: External US FHR Baseline Changes: No Baseline Change Variability: Moderate 6-25 bpm Accelerations: 15X15 Decelerations: None Category: Category I Pain Assessment Pain Scale: 3 Pain Presence: Intermittent Pain Type: Contraction Pain Location: Abdomen; Back Pain Goal: 2 Pain Relief Measures: Comfort Measures Datetime: 12/25/2018 14:00 Labor Evaluation Frequency: 5-8 Monitor Mode: External Duration (sec)2399: 50-90 Quality: Moderate Pattern: Normal: <= 5 Contractions in 10 Minutes Resting Tone [place]: Relaxed Heart Rate FHR Baseline Rate: 155 Monitor Mode: External US FHR Baseline Changes: No Baseline Change Variability: Moderate 6-25 bpm Accelerations: 15X15 Decelerations: None Category: Category I Pain Assessment Pain Scale: 3 Pain Presence: Intermittent Pain Type: Contraction Pain Location: Abdomen; Back Pain Goal: 2 Pain Relief Measures: Comfort Measures Datetime: 12/25/2018 13:00 Labor Evaluation Frequency: OCC Monitor Mode: External Quality: Mild Pattern: Normal: <= 5 Contractions in 10 Minutes Resting Tone [place]: Relaxed Heart Rate FHR Baseline Rate: 145 Monitor Mode: External US FHR Baseline Changes: No Baseline Change Variability: Moderate 6-25 bpm Accelerations: 15X15 Decelerations: None Category: Category I Pain Presence: None/Denies Datetime: 12/25/2018 12:10 Labor Evaluation Frequency: 5 Monitor Mode: External Duration (sec)2399: 50-80 Quality: Mild Pattern: Normal: <= 5 Contractions in 10 Minutes Resting Tone [place]: Relaxed Heart Rate FHR Baseline Rate: 150 Monitor Mode: External US FHR Baseline Changes: No Baseline Change Variability: Moderate 6-25 bpm Accelerations: 15X15 Decelerations: None Category: Category I Pain Assessment Pain Scale: 3 Pain Presence: Intermittent Pain Type: Contraction Pain Location: Abdomen; Back Pain Goal: 2 Pain Relief Measures: Comfort Measures Datetime: 12/25/2018 11:00 Stage of : Antepartum Maternal Assessment Level of Consciousness: Fully Conscious Labor Evaluation Frequency: 2-14 Monitor Mode: External Duration (sec)2399: 50-110 Quality: Mild Resting Tone [place]: Relaxed Heart Rate FHR Baseline Rate: 140 Monitor Mode: External US Variability: Moderate 6-25 bpm Accelerations: 15X15 Decelerations: None Category: Category I Pain Assessment Pain Scale: 0 Pain Goal: 3 Membrane Status: Intact Vaginal Bleeding: None Datetime: 12/25/2018 10:00 Stage of : Antepartum Maternal Assessment Level of Consciousness: Fully Conscious Labor Evaluation Frequency: IRREGULAR Monitor Mode: External Duration (sec)2399: 40-80 Quality: Mild Resting Tone [place]: Relaxed Heart Rate FHR Baseline Rate: 135 Monitor Mode: External US Variability: Moderate 6-25 bpm Accelerations: 15X15 Decelerations: None Category: Category I Pain Assessment Pain Scale: 0 Pain Goal: 3 Membrane Status: Intact Vaginal Bleeding: None Datetime: 12/25/2018 09:17 Fall Score: 0 Fall Risk Score Definition: No Risk: No action required Datetime: 12/25/2018 09:16 EGA: 38.2 Datetime: 12/22/2018 08:59 Assessment Type: Admission Assessment Vaginal Bleeding: None Maternal Assessment Level of Consciousness: Fully Conscious DTR's/Clonus: DTRs 2+; No Clonus Headache: Denies Blurred Vision: No Respiratory Effort: Unlabored; Regular Rhythm; Equal Expansion Breath Sounds, Left: Clear and Equal Breath Sounds, Right: Clear and Equal Nausea/Vomiting: Denies RUQ Epigastric Pain: Denies Lower Extremities Edema: None Degree: None Upper Extremities Edema: None Degree: None Facial Edema: None Fall Risk Assessment History of Falling: (0) No Secondary Diagnosis: (0) No Ambulatory Aid: (0) Bedrest/Nurse Assist IV Therapy: (0) No Gait: (0) Normal/Bedrest/Immobile Mental Status: (0) Oriented to Own Ability Fall Score: 0 Fall Risk Score Definition: No Risk: No action required Labor Evaluation Frequency: 6-9 Duration (sec)2399: 30-80 Quality: Mild Pattern: Normal: <= 5 Contractions in 10 Minutes Resting Tone [place]: Relaxed Heart Rate FHR Baseline Rate: 135 Variability: Moderate 6-25 bpm Accelerations: 15X15 Decelerations: None Category: Category I Pain Assessment Pain Scale: 3 Pain Presence: Intermittent Pain Type: Cramping Pain Location: Abdomen Pain Goal: 3 Membrane Status: Intact Datetime: 12/22/2018 08:57 Fall Score: 0 Fall Risk Score Definition: No Risk: No action required Datetime: 12/22/2018 08:55 EGA: 37.6 Datetime: 10/10/2018 10:15 Fall Score: 0 Fall Risk Score Definition: No Risk: No action required Datetime: 10/10/2018 09:48 EGA: 27.3
--- NOTE | 2018-12-29 18:51 | HP ---
Date/Time of Note Date/Time of Note DATE: 12/29/18 TIME: 18:43 OB - History Hx of Present Free Text/Dictation December 29 2018 : 2 Para: 1 Spontaneous : 0 Therapeutic : 0 Care: Good Care Ultrasounds: Abnormal US findings Obstetrical Complications: Other (Suspected abnormalities) Other Concerns: 28-year-old with IUP at 38 weeks and 6 days presented after rupture membrane this afternoon at 1 PM. Patient reports feeling contractions every 2-3 minutes. records partially available and reviewed. There is a concern for suspected anomaly. Records of ultrasound is not available at the time patient presented to the hospital Past Family/Social History * Past Medical, Surgical, Family and Obstetric Histories reviewed from chart. Blood Type: O+ Rubella: immune RPR/VDRL: Negative GBS Status: Positive HBsAG: Negative OB Admission Exam Vital Signs Vital Signs Vital Signs Date Temp Pulse Resp B/P (MAP) Pulse Ox O2 O2 Flow FiO2 Time Delivery Rate 12/29/18 97.5 74 20 125/69 13:58 (87) Physical Exam HEENT: WNL Lungs: Clear Abdomen: WNL Extremities: Normal Cervical Dilatation: 4cm Effacement: 75% Station: -2 Membranes: Ruptured Amniotic Fluid: Clear Heart Rate: 130's Accelerations: Accelerations Present Decelerations: No Decelerations Varibility: Moderate Contractions on Admission: < 5 Minutes Apart Intensity: Moderate Last 72 hours Lab Results CBC & BMP 12/29/18 14:41 OB Assessment/Plan Reason for admission: active labor Other Assessment: IUP at 38 weeks and 6 days SROM Active labor GBS posirtive. records questionable suspected abnormality? Ultrasound report unavailable. Consider ultrasound for any gross possible abnormality. Discussed with RN to inform NICU at the time of aubrey, since the records of ultrasound was not obtainable now and is not included in the records Anticipate GBS prophylaxis BENIGNO RAMIREZ MD Dec 29, 2018 18:51
[2018-12-29] MEDS: AMPICILLIN 1 GM/NS (PMX) 50 ML IV SCH ×2 (18:58→23:00)
--- NOTE | 2018-12-30 01:24 | LDN ---
Date/Time of Note Date/Time of Note DATE: 12/30/18 TIME: 01: Delivery Summary of normal female Weeks of Gestation 39w Placenta Delivered: Spontaneously Meconium: none Episiotomy: No Perineal laceration: 1 Laceration repair: 000 ch gut Anesthesia type: None Estimated blood loss: 100 Sponge & Needle done & correct: Yes All needle counts correct: Yes Any foreign bodies felt in the: No Infant Delivery Information Sex Sex: female Apgars 1 Minute: 8 5 Minute: 9 Suctioning Nose & mouth suctioned at darinel: Yes Delee suction performed: Yes Umbilical Cord Umbilical cord with: 3 Vessels Cord presentations: no nuchal cord Cord Blood was obtained: Yes Mother & Baby Disposition Disposition Mom & Baby to Maternity; Good: Yes Mom transferred to: Other Baby to NICU: No () SESAR ROSALES MD Dec 30, 2018 01:24
[2018-12-30 03:10] VITALS: BP 123/70; PULSE 81; RESP 18
[2018-12-30] MEDS ORDERED: BENZOCAINE 20% 56 ML SPRAY TOP PRN (03:30)
[2018-12-30] MEDS ORDERED: METHYLERGONOVINE 0.2 MG INJ IM PRN (03:30)
[2018-12-30] MEDS ORDERED: OXYCODONE/ASPIRIN (4.88/325) TAB PO PRN ×2 (03:30)
[2018-12-30] MEDS ORDERED: ZOLPIDEM 5 MG TAB PO PRN (03:30)
[2018-12-30] MEDS ORDERED: WITCH HAZEL/GLYCERIN PAD PR PRN (03:30)
[2018-12-30] MEDS ORDERED: CARBOPROST 250 MCG INJ IM PRN (03:30)
[2018-12-30] MEDS ORDERED: MISOPROSTOL 200 MCG TAB PR PRN (03:30)
[2018-12-30] MEDS ORDERED: OXYTOCIN 30 UNITS/LR 500 ML IV PRN (03:30)
[2018-12-30] MEDS ORDERED: LANOLIN HPA 1 PKT TOP PRN (03:30)
[2018-12-30] MEDS: IBUPROFEN 600 MG TAB PO SCH ×3 (05:43→16:58)
[2018-12-30 08:30] VITALS: BP 102/58; PULSE 61; RESP 18
[2018-12-30] MEDS: SENNA/DOCUSATE NA (8.6MG/50MG) TAB PO SCH ×2 (09:00→21:18)
[2018-12-30 12:00] VITALS: BP 105/56; PULSE 75; RESP 18
[2018-12-30 16:00] VITALS: BP 112/69; PULSE 77; RESP 18
[2018-12-30 20:00] VITALS: BP 109/58; PULSE 88; RESP 16
[2018-12-31 00:40] VITALS: BP 106/60; PULSE 84; RESP 18
[2018-12-31] MEDS: IBUPROFEN 600 MG TAB PO SCH ×4 (00:47→18:00)
[2018-12-31 04:06] VITALS: BP 110/65; PULSE 86; RESP 16
[2018-12-31 08:00] VITALS: BP 111/67; PULSE 79; RESP 18
[2018-12-31] MEDS: SENNA/DOCUSATE NA (8.6MG/50MG) TAB PO SCH ×2 (10:37→21:14)
--- NOTE | 2018-12-31 13:01 | PN ---
Date/Time of Note Date/Time of Note DATE: 12/31/18 TIME: 12:59 OB Subjective Subjective Subjective PPD# 1 Patient is doing well. She denies nausea, vomiting, shortness of breath, chest pain, headache. She has been ambulating without difficulty, tolerating regular diet. Pain is well controlled on current medications OB Objective Objective Objective Vital Signs Date Temp Pulse Resp B/P (MAP) Pulse Ox O2 O2 Flow FiO2 Time Delivery Rate 12/31/18 98.0 86 16 110/65 04:06 (80) 12/31/18 98 Room Air 00:40 General: AAO X 3, comfortable, NAD, appropriate mood and affect. ABD: +BS. Soft, non-tender. Uterus 2 cm below umbilicus Flank: No CVA tenderness (B/L) LE: Mild edema. No clubbing, cyanosis, thigh or calf tenderness (B/L). Homans 'sign is negative Laboratory Tests Test 12/29/18 14:41 12/30/18 06:16 12/31/18 06:32 White Blood Count 7.4 10^3/ul 10.5 10^3/ul Red Blood Count 4.07 10^6/ul 3.38 10^6/ul Hemoglobin 12.3 g/dl 10.3 g/dl Hematocrit 36.2 % 30.9 % Mean Corpuscular Volume 88.9 fl 91.4 fl Mean Corpuscular 30.2 pg 30.5 pg Hemoglobin Mean Corpuscular 34.0 g/dl 33.3 g/dl Hemoglobin Concent Red Cell Distribution 12.7 % 13.0 % Width Platelet Count 127 10^3/UL 126 10^3/UL Mean Platelet Volume 14.0 fl 13.4 fl Immature Granulocytes % 0.500 % 0.800 % Neutrophils % 76.9 % 59.4 % Lymphocytes % 17.3 % 31.1 % Monocytes % 4.6 % 6.8 % Eosinophils % 0.3 % 1.5 % Basophils % 0.4 % 0.4 % Nucleated Red Blood Cells 0.0 /100WBC 0.0 /100WBC % Immature Granulocytes # 0.040 10^3/ul 0.080 10^3/ul Neutrophils # 5.7 10^3/ul 6.2 10^3/ul Lymphocytes # 1.3 10^3/ul 3.3 10^3/ul Monocytes # 0.3 10^3/ul 0.7 10^3/ul Eosinophils # 0.0 10^3/ul 0.2 10^3/ul Basophils # 0.0 10^3/ul 0.0 10^3/ul Nucleated Red Blood Cells 0.0 10^3/ul 0.0 10^3/ul # Prothrombin Time 12.7 Sec Prothrombin Time Ratio 1.0 INR International 0.94 Normalized Ratio Activated 27.6 Sec Partial Thromboplast Time Rapid Plasma Reagin NONREACTIVE Hepatitis B Surface NEGATIVE Antigen Lab Scanned Report REFERENCE LAB [id number] OB Assessment/Plan Other plan: 28 years old s/p normal vaginal deliver at 38 weeks and 6 days. PPD#1 - AF, VSS - Baby is doing well, at bed side. She is bonding well - Contraception methods with R/B/A/FR discussed - Continue care - She would like to be discharged home today. She was delivered at 1:30 AM yesterday. She may discharge home if is okay with [employer] - Rx and instruction given - Follow up in 2 and 6 weeks at clinic ASHLEE VILLANUEVA Dec 31, 2018 13:01
--- NOTE | 2018-12-31 13:02 | DS ---
Date/Time of Note Date/Time of Note DATE: 12/31/18 TIME: 13:01 Obstetrical Discharge Record Final Diagnosis Final Diagnosis: Term delivered Other Final Diagnosis 28 years old s/p normal vaginal deliver at 38 weeks and 6 days. PPD#1. She is ambulating and tolerating regular diet. She is voiding without difficulty, had bowel movement. Pain is controlled on current medication - AF, VSS - Baby is doing well, at bed side. She is bonding well - Contraception methods with R/B/A/FR discussed - Continue care - She would like to be discharged home today. She was delivered at 1:30 AM yesterday. She may discharge home if is okay with fish sal[employer] - Rx and instruction given - Follow up in 2 and 6 weeks at clinic Vaginal Delivery Obstetrical Delivery: Spontaneous Condition on Discharge Physical Assessment Voiding: Yes Bowel Movement: Yes Breast: Soft, non-tender Fundus: Firm Calf Tenderness: No Patient Condition: Stable ASHLEE VILLANUEVA Dec 31, 2018 13:02
[2018-12-31 16:00] VITALS: BP 108/57; PULSE 80; RESP 18
[2018-12-31 20:40] VITALS: BP 113/61; PULSE 73; RESP 17
[2019-01-01] MEDS: IBUPROFEN 600 MG TAB PO SCH ×3 (00:37→12:14)
[2019-01-01 04:20] VITALS: BP 101/59; PULSE 64; RESP 16
[2019-01-01 08:55] VITALS: BP 105/78; PULSE 84; RESP 18
[2019-01-01] MEDS ORDERED: DIPHTH/TET/ACEL PERTUSS (ADULT) 0.5 ML VIAL IM* ONE (09:00)
[2019-01-01] MEDS: SENNA/DOCUSATE NA (8.6MG/50MG) TAB PO SCH (09:17)
== END 2019-01-01 14:00 | disposition home or self-care (01) | DRG 807 ==
LOC: L-D 13:00 → OBT 13:00 → L-D 13:51 → OBT 14:00 → L-D 14:15 → PP1 12-30 02:53
PROVIDERS: ADMIT Obstetrics & Gynecology; ATTEND Obstetrics & Gynecology
PROC: 10E0XZZ Delivery of Products of Conception, External Approach (ICD-10-PCS; principal; 2018-12-30)
DX: O70.0 First degree perineal laceration during delivery (principal); Z37.0 Single live birth; Z3A.39 39 weeks gestation of pregnancy
CPT/HCPCS: 76815; 85025; 85610; 85730; 86592; 86850; 86900; 86901; 87340; 90715; 99464; G0463; J0290; J2590; J7120

== ENCOUNTER 2019-09-04 11:54 | Emergency (ER) | payer MEDICAID ==
[~2019-09-04] VITALS: Ht 152.4 cm; Wt 61.9 kg
[~2019-09-04 11:54] MED LIST changes: -ACET325T33 PO; +ACET500C5 PO; +CALC667C PO; -CEPH-443 PO; +D-ME473S2 PO; +FAMO-96 PO; +FOLI0.4T2 PO; -IBUP-1542 PO; -NAPR-985 PO; +ONDA4TAB14 PO; -PANT20TA2 PO; +PRED20TA PO
[2019-09-04 11:56] VITALS: BP 118/66; PULSE 69; RESP 18; Ht 152.4 cm; Wt 61.9 kg
== END 2019-09-04 11:56 | disposition home or self-care (01) ==
LOC: E/R 11:54
DX: J06.9 Acute upper respiratory infection, unspecified (principal)
CPT/HCPCS: 99283